=== PATIENT | female | born 1965 | race Caucasian/White ===

== ENCOUNTER 2021-03-29 16:40 | Emergency (ER) | payer OTHER, SELFPAY ==
[2021-03-29] VITALS (23 sets, daily range): BP systolic 107–114; BP diastolic 65–73; PULSE 61–81; RESP 12–24; TEMP 36.4; O2SAT 96–100
--- NOTE | 2021-03-29 16:30 | RT.EKG_ITS ---
APPROVED REPORT Exam: Resting ECG Reason for Exam: left arm pain and numbness Patient Location: E HR:68 bpm ECG Measurements Heart Rate 68 AXIS AZ 151 P 38 QRSd 83 QRS 36 QT 404 T 34 QTc 431 Conclusion Sinus rhythm...normal P axis, V-rate 60- 99 Low voltage, precordial leads...precordial leads <1.0mV
[2021-03-29] MEDS: Aspirin 81 MG CHEW 324 MG CH (16:57)
--- NOTE | 2021-03-29 17:15 | DI.RAD_ITS ---
Exam(s) XR CHEST 2V PA LATERAL EXAM: XR CHEST 2V PA LATERAL CLINICAL HISTORY: L shoulder pressure TECHNIQUE: 2D digital imaging was performed. COMPARISON: No exams were available for comparison FINDINGS: MEDIASTINUM: Normal. HEART: Normal. PULMONARY VASCULATURE: Normal. LUNGS: Clear. PLEURAL SPACE: No pleural effusion or pneumothorax. BONE:Within normal limits for the patient's age. OTHER FINDINGS:Normal. IMPRESSION: No acute pulmonary findings. DATA REPOSITORY: RADIATION DOSE DELIVERED:
[2021-03-29 17:16] LABS: Abs Immature Grans 0.01 10^3/uL (0.0-0.06); Absolute Basophil Count 0.03 10^3/uL (0.0-0.2); Absolute Eosinophil Count 0.27 10^3/uL (0.0-0.7); Absolute Lymphocyte Count 2.17 10^3/uL (1.2-3.4); Absolute Monocyte Count 0.55 10^3/uL (0.1-0.8); Absolute Neutrophil Count 2.85 10^3/uL (1.2-6.7); Basophils % 0.5; Eosinophils % 4.6; HCT 40.5 % (36.0-46.0); HGB 13.6 g/dL (11.2-15.7); Immature Grans % 0.2; Lymphocytes % 36.9; MCH 30.2 pg (27.0-33.0); MCHC 33.6 % (32.0-36.0); MPV 10.5 fL (8.0-11.0); Monocytes % 9.4; Neutrophils % 48.4; Nucleated RBC 0 %; Platelet Count 267 10^3/uL (130-400); RDW 12.9 % (11.7-14.6); RDW-SD 42.5 fL; WBC 5.88 10^3/uL (4.4-10.8)
[2021-03-29 17:27] LABS: Magnesium 2.1 mg/dL (1.8-2.4)
[2021-03-29 17:29] LABS: PTT Activated 24.6 sec (21.0-27.5)
[2021-03-29 17:33] LABS: ALT 42 U/L (14-59); AST 30 U/L (15-37); Albumin 3.8 g/dL (3.4-5.0); Alkaline Phosphatase 104 U/L (46-116); Anion Gap 8.2 mmol/L (3-11); BUN 21 mg/dL (7-18); Bilirubin, Total 0.4 mg/dL (0.2-1.0); CO2 25.8 mmol/L (21.0-32.0); CREATININE 0.8 mg/dL (0.55-1.02); Chloride 106 mmol/L (98-107); Glucose 98 mg/dL (74-106); Potassium 3.8 mmol/L (3.5-5.1); Sodium 140 mmol/L (136-145); Total Protein 7.5 g/dL (6.4-8.2); Troponin I < 0.05 ng/mL (<0.06)
[2021-03-29 17:48] LABS: D-Dimer 541 ng/mlFEU (<500)
--- NOTE | 2021-03-29 18:00 | DI.CT_ITS ---
Exam(s) CT CHEST PE CTA EXAM: CT CHEST PE CTA CLINICAL HISTORY: L sided chest pressure, elevated dimer. TECHNIQUE: Imaging Protocol: Axial CT angiography was performed with multi-slice acquisition and mu lti-planar and/or 3D reconstructions. CONTRAST MATERIAL: Intravenous: Omnipaque 350 Contrast volume:70 mL COMPARISON: CR,XR XR CHEST 2V PA LATERAL from 03/29/2021 CR,XR XR CHEST 2V PA LATERAL from 03/29/2021 FINDINGS: Tracheobronchial tree: Patent where visualized. Pulmonary parenchyma: No consolidation or dominant measurable mass. No architectural distortion. Depe ndent atelectasis. Pulmonary Arteries: No evidence of filling defect to suggest pulmonary emboli. Mediastinum and Laure: No dominant adenopathy or fluid collection. There is mild diffuse thickening of the wall of the esophagus. Visualized thyroid gland: Unremarkable. Pleura: No effusion or pneumothorax. Heart: The heart is not dilated. No coronary artery calcifications are seen. No pericardial effusion. Aorta: Thoracic aorta non-dilated. No evidence of dissection. Upper abdomen: There are multiple tiny hypodensities in the liver. They are too small for further c haracterization on this examination. A dedicated CT scan of the abdomen and pelvis is recommended fo r further evaluation. Soft tissues: Unremarkable. Bones: Within normal limits. IMPRESSION: 1. No evidence of pulmonary embolism, thoracic aortic dissection or aneurysm. 2. Diffuse thickening of the wall of the esophagus which may represent esophagitis. 3. Whipple tiny hypodensities within the liver. A dedicated CT scan of the abdomen and pelvis is rec ommended for further evaluation. RADIATION DOSE DELIVERED: 390.97mGy.cm Total DLP DATA REPOSITORY: All CT scans at this facility are submitted to the National Radiology Data Registry (NRDR) Dose Index Registry (DIR) with the [employer] ([employer]). RADIATION OPTIMIZATION: All CT scans at this facility use at least one of these dose optimization te chniques: automated exposure control; mA and/or kV adjustment per patient size (includes targeted exa ms where dose is matched to clinical indication); or iterative reconstruction.
--- NOTE | 2021-03-29 18:09 | DI.VRAD_ITS ---
PROCEDURE INFORMATION: Exam: XR Chest Exam date and time: 03/29/2021 5:26 PM Age: 55 years old Clinical indication: Other: Left shoulder pressure, left arm pain, PT not feeling well all of a sudden TECHNIQUE: Imaging protocol: XR of the chest. Views: 2 views. COMPARISON: No relevant prior studies available. FINDINGS: Lungs: Unremarkable. No consolidation. Pleural spaces: Unremarkable. No pleural effusion. No pneumothorax. Heart/Mediastinum: Unremarkable. No cardiomegaly. Bones/joints: Unremarkable. IMPRESSION: No acute findings. Dictated and Authenticated by: Ernie Longoria MD. Ordering:LONDON Hampton MD
--- NOTE | 2021-03-29 18:23 | ED.GENADUL_ITS ---
Discharge Plan Disposition Patient Disposition: HOME Condition: Stable Discharge Details Clinical Impression: Arm paresthesia, left, Esophagitis Primary Care Provider: Unknown,Unknown ED Provider: Memo Moyer Home Meds and New Rx's Prescriptions: Continued levothyroxine [Synthroid] 125 mcg Tablet 125 mcg PO DAILY RF: 0 Vyvanse 70 mg Capsule 70 mg PO DAILY RF: 0 Discharge Instructions Instructions: Paresthesia (ED), Esophagitis (ED) Additional Instructions: Rapid cardiac rule out is unremarkable here in the ER. Chest CTA reveals no evidence of PE. It does reveal mild esophagitis but it sounds like you just began taking [id number] PPI secondary to indigestion. Please watch for new or worsening symptoms and return to the ER for any concerns. Otherwise I strongly recommend following up with your primary care provider for further evaluation of your symptoms once you return home to [place] Discharge Data Discharge Date/Time-TO BE ENTERED AT DEPARTURE: 03/29/21 20:55 Medical Decision Making This is a 55-year-old female, past medical history of thyroid disease, flew from [place] yesterday, presenting for left arm paresthesias. Clinically she appears well, nontoxic, is neurologically intact, denies any chest pain or shortness of breath. Although this very well could be radiculopathy in nature given she has been helping move and lift her elderly father, concern for atypical ACS, PE given her recent flight, etc. Plan is to give the patient a full dose aspirin, initiate cardiac work-up including chest x-ray and a D-dimer. Patient is agreeable to this plan. Initial laboratory values are unremarkable for obvious emergent process. No e vidence of leukocytosis, electrolytes are unremarkable, normal renal function, troponin less than 0.05, age-adjusted D-dimer is negative at 541. Chest x-ray unremarkable Upon reevaluation patient states that her symptoms are improving but have not resolved completely. Given her recent flight, using shared decision-making, given her dimer is above 500 and so close to being positive when factoring in age adjustment, she would like to pursue CTA of the chest. CTA reveals mild esophagitis but no PE. Discussed findings with patient. 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 Heart score of 1. Discussed heart score and work-up thus far. Patient is agreeable to awaiting repeat troponin and EKG and if unremarkable she would like to be discharged. Patient states that she will follow up when she returns to [place] in the next 3-4 days otherwise will return to our ER or any ER longer travels for new or worsening symptoms. Given her benign work-up thus far will give 30 IV Toradol. Repeat EKG performed at 2012, please see official report by Dr. Friedman. Sinus rhythm, ventricular rate of 63. No STEMI. No dynamic changes when compared to initial EKG Repeat troponin remains less than 0.05. Patient reports some improvement with the IV Toradol. Symptoms are much improved when compared to her initial presentation but not resolved completely. Patient will watch her diet and take [id number] PPI. She will follow-up with her primary care provider when she returns home to [place], discuss outpatient stress test and/or echocardiogram as well as potential endoscopy if her indigestion continues. We once again discussed her work-up here in the ER and I answered all of her questions and concerns to the best my ability. Patient is still comfortable with discharge. Strict discharge and return precautions given. This documentation was generated using [employer] system, please disregard any oddities of phrase or misspellings. Imaging Data Radiologic Study: Attestation: I personally reviewed and interpreted this imaging study as follows: Imaging: X-Ray Radiologist's impression: PROCEDURE INFORMATION: Exam: XR Chest Exam date and time: 03/29/2021 5:26 PM Age: 55 years old Clinical indication: Other: Left shoulder pressure, left arm pain, PT not feeling well all of a sudden TECHNIQUE: Imaging protocol: XR of the chest. Views: 2 views. COMPARISON: No relevant prior studies available. FINDINGS: Lungs: Unremarkable. No consolidation. Pleural spaces: Unremarkable. No pleural effusion. No pneumothorax. Heart/Mediastinum: Unremarkable. No cardiomegaly. Bones/joints: Unremarkable. IMPRESSION: No acute findings. Thank you for allowing us to participate in the care of your patient. Radiologic Study #2: Attestation: I personally reviewed and interpreted this imaging study as follows: Imaging: CT Scan Radiologist's impression: PROCEDURE INFORMATION: Exam: CTA Chest With Contrast Exam date and time: 03/29/2021 6:05 PM Age: 55 years old Clinical indication: Pain; Chest pressure and left-sided; Patient HX: Left sided chest pressure TECHNIQUE: Imaging protocol: Computed tomographic angiography of the chest with contrast. 3D rendering (Not supervised by radiologist): MIP and/or 3D reconstructed images were created by the technologist. Radiation optimization: All CT scans at this facility use at least one of these dose optimization techniques: automated exposure control; mA and/or kV adjustment per patient size (includes targeted exams where dose is matched to clinical indication); or iterative reconstruction. Contrast material: OMNIPAQUE 350; COMPARISON: CR XR CHEST 2V PA LATERAL 03/29/2021 5:37 PM FINDINGS: Pulmonary arteries: Unremarkable. No pulmonary emboli. There is bibasilar subsegmental atelectasis. Aorta: Unremarkable. No aortic aneurysm. No aortic dissection. Lungs: Unremarkable. No consolidation. No masses. Pleural spaces: Unremarkable. No pneumothorax. No pleural effusion. Heart: Unremarkable. No cardiomegaly. No pericardial effusion. Mediastinal space: There is wall thickening of the esophagus. Lymph nodes: Unremarkable. No enlarged lymph nodes. Bones/joints: Unremarkable. No acute fracture. Soft tissues: Unremarkable. [facility] Preliminary Radiology Report DRUG ROOM CLERK (QA) DISCREPANCY? If there is a discrepancy between the preliminary and final interpretation, please notify [employer] via [email or web address]. If you do not have access to our QA portal, call our QA team at [phone] CONFIDENTIALITY STATEMENT This report is intended only for the use of the referring physician, and only in accordance with law, If you received this in error, call [phone] Page 2 of 2 IMPRESSION: 1. No evidence for pulmonary embolism. 2. Wall thickening of the esophagus suspicious for esophagitis. Thank you for allowing us to participate in the care of your patient. Lab Data Lab results reviewed: Yes I reviewed the patient's lab results. Labs: Laboratory Tests Range/Units 03/29/21 03/29/21 03/29/21 17:00 17:00 17:00 WBC (4.4-10.8) 10^3/uL 5.88 RBC (3.93-5.22) 10^6/uL 4.50 Hgb (11.2-15.7) g/dL 13.6 Hct (36.0-46.0) % 40.5 MCV (80-95) fL 90.0 MCH (27.0-33.0) pg 30.2 MCHC (32.0-36.0) % 33.6 RDW (11.7-14.6) % 12.9 Plt Count (130-400) 10^3/uL 267 MPV (8.0-11.0) fL 10.5 Immature Gran % 0.2 Neutrophils % 48.4 Lymphocytes % 36.9 Monocytes % 9.4 Eosinophils % 4.6 Basophils % 0.5 Nucleated RBC % % 0 Absolute Neutrophils (1.2-6.7) 10^3/uL 2.85 Absolute Lymphocytes (1.2-3.4) 10^3/uL 2.17 Absolute Monocytes (0.1-0.8) 10^3/uL 0.55 Absolute Eosinophils (0.0-0.7) 10^3/uL 0.27 Absolute Basophils (0.0-0.2) 10^3/uL 0.03 PT (9.3-11.0) sec INR (0.9-1.1) APTT (21.0-27.5) sec D-Dimer (<500) ng/mlFEU Sodium (136-145) mmol/L 140 Potassium (3.5-5.1) mmol/L 3.8 Chloride (98-107) mmol/L 106 Carbon Dioxide (21.0-32.0) mmol/L 25.8 Anion Gap (3-11) mmol/L 8.2 BUN (7-18) mg/dL 21 H Creatinine (0.55-1.02) mg/dL 0.8 Estimated GFR/1.73 m2 (mL/min/1.73m2) >= 60.00 Glucose (74-106) mg/dL 98 Calcium (8.5-10.1) mg/dL 9.0 Magnesium (1.8-2.4) mg/dL 2.1 Total Bilirubin (0.2-1.0) mg/dL 0.4 AST (15-37) U/L 30 ALT (14-59) U/L 42 Alkaline Phosphatase (46-116) U/L 104 Troponin I (<0.06) ng/mL < 0.05 Total Protein (6.4-8.2) g/dL 7.5 Albumin (3.4-5.0) g/dL 3.8 Range/Units 03/29/21 03/29/21 17:00 20:00 WBC (4.4-10.8) 10^3/uL RBC (3.93-5.22) 10^6/uL Hgb (11.2-15.7) g/dL Hct (36.0-46.0) % MCV (80-95) fL MCH (27.0-33.0) pg MCHC (32.0-36.0) % RDW (11.7-14.6) % Plt Count (130-400) 10^3/uL MPV (8.0-11.0) fL Immature Gran % Neutrophils % Lymphocytes % Monocytes % Eosinophils % Basophils % Nucleated RBC % % Absolute Neutrophils (1.2-6.7) 10^3/uL Absolute Lymphocytes (1.2-3.4) 10^3/uL Absolute Monocytes (0.1-0.8) 10^3/uL Absolute Eosinophils (0.0-0.7) 10^3/uL Absolute Basophils (0.0-0.2) 10^3/uL PT (9.3-11.0) sec 10.0 INR (0.9-1.1) 1.0 APTT (21.0-27.5) sec 24.6 D-Dimer (<500) ng/mlFEU 541 H Sodium (136-145) mmol/L Potassium (3.5-5.1) mmol/L Chloride (98-107) mmol/L Carbon Dioxide (21.0-32.0) mmol/L Anion Gap (3-11) mmol/L BUN (7-18) mg/dL Creatinine (0.55-1.02) mg/dL Estimated GFR/1.73 m2 (mL/min/1.73m2) Glucose (74-106) mg/dL Calcium (8.5-10.1) mg/dL Magnesium (1.8-2.4) mg/dL Total Bilirubin (0.2-1.0) mg/dL AST (15-37) U/L ALT (14-59) U/L Alkaline Phosphatase (46-116) U/L Troponin I (<0.06) ng/mL < 0.05 Total Protein (6.4-8.2) g/dL Albumin (3.4-5.0) g/dL ECG Data Attestation: I personally reviewed and interpreted this ECG (s) as follows: Interpretation: Please see official report by Dr. Cazares, sinus rhythm, ventricular rate of 68. No STEMI. HPI General Mode of arrival: ambulatory . Date/Time Provider Initiated Documentation: 03/29/21 16:52 . Limitations to Documentation: no limitations . Information obtained by: patient . HPI Narrative: This is a 55-year-old female, past medical history that includes thyroid disease, presenting to the ER reporting left arm and shoulder paresthesias and nausea that began about 30 minutes ago at rest. The paresthesias run from the anterior aspect of her left shoulder down her entire arm and into all 5 digits. Patient states that yesterday she flew here from [place] was asymptomatic. The purpose of her travel was to see her father who was initiated on hospice care today, she has been helping care for him, lifting, turning him, and wonders if she could have injured herself. She denies any true pain. She denies any pulmonary or cardiac history. Denies recent illness or trauma. Denies headache, neck pain, chest pain, shortness of breath, abdominal pain, vomiting, change in bowel or bladder function, pain or swelling in her legs, numbness, tingling, weakness. Denies history of DVT or PE. She has not taken any medication for her symptoms. Patient states that she is likely going to be in the area for the next 3-4 days and then will travel back home to [place]. Patient is not a smoker. 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 She is right-hand dominant Related Data Home Medications Medication Instructions Recorded Confirmed Vyvanse 70 mg PO DAILY 03/29/21 03/29/21 levothyroxine [Synthroid] 125 mcg PO DAILY 03/29/21 03/29/21 Allergies Allergy/AdvReac Type Severity Reaction Status Date / Time No Known Allergies Allergy Unverified 03/29/21 16:53 General Stated Complaint: Chest Pain BUD: 2 Review of Systems Constitutional Constitutional: Denies fatigue, Denies fever(s) and Denies headache(s) Eyes Eyes: Denies change in vision ENT Ears, Nose, Mouth, and Throat: Denies headache(s) and Denies neck pain Cardiovascular Cardiovascular: Denies chest pain and Denies dyspnea Respiratory Respiratory: Denies cough and Denies dyspnea Gastrointestinal Gastrointestinal: Denies abdominal pain, Reports nausea (Has resolved completely) and Denies vomiting Musculoskeletal Musculoskeletal: Denies back pain, Denies neck pain, Denies numbness, Denies stiffness and Reports tingling Integumentary/Breasts Skin/Breast: Denies rash Neurologic Neurologic: Denies headache(s), Denies numbness and Reports tingling Endocrine Endocrine: Denies fatigue [facility] Social History Smoking/Tobacco Use Status: Never Smoking risk assessment performed?: Yes Alcohol Intake: current Alcohol Intake frequency: holidays/special occasions only Drug use: Never Substance use type: does not use Do you feel safe at home: Yes Do you feel safe in your relationship?: Yes Exam Const General: cooperative, healthy appearing, comfortable and no acute distress Orientation: alert, awake and oriented x3 HENMT Head: normal to inspection, normocephalic and atraumatic Face and sinus: normal facial exam Mouth: moist mucous membranes Throat: posterior oropharynx normal Eyes General: appearance normal, both eyes and all related structures Alignment and Position: alignment normal Periorbital: periorbital findings normal Eyelids: eyelids normal Conjunctivae: conjunctivae normal Sclera: sclerae normal Cornea: corneas normal Pupils: PERRL EOM: EOM intact bilaterally Direct ophthalmoscopy: normal light reflex Neck Neck: normal visual inspection, full ROM, no meningeal signs, trachea midline, supple and nontender Chest Chest: normal inspection of the chest Resp Effort & Inspection: normal respiratory effort and able to speak in complete sentences Auscultation: clear to auscultation bilaterally Cardio Rate: regular rate Rhythm: regular rhythm GI Palpation: soft, not firm, no guarding, no pulsatile masses and nontender Back/Spine/Pelvis Back: no CVA tenderness and No back tenderness Skin General skin exam: no rashes or lesions noted Neuro General: patient alert, patient awake, patient oriented x3, moves all ext remities and no focal motor deficits Cranial Nerves: CN's II-XI intact bilaterally Cognition: normal cognition Speech: speech normal Gait: normal gait Motor: muscle tone normal throughout, strength 5/5 throughout, no movement abnormalities noted and no fasciculations Sensory Exam: no sensory deficits noted Coordination: Does not sway with eyes open Extrem General: normal to inspection, full ROM, capillary refill normal, no pedal edema and no calf tenderness Psych Appearance: grossly normal Mental Status: mental status grossly normal Course Vital Signs Vital signs: Vital Signs Temperature 36.4 C L 03/29/21 16:44 Pulse 78 03/29/21 16:44 Respiratory Rate 19 03/29/21 16:44 Pulse Oximetry 99 03/29/21 16:44 Temperature 36.4 C L 03/29/21 16:44 Temperature Source Temporal Artery Scan 03/29/21 16:44 Pulse 78 03/29/21 16:44 Respiratory Rate 19 03/29/21 16:44 Respiratory Effort Non-Labored 03/29/21 16:51 Blood Pressure Position Supine 03/29/21 16:44 Pulse Oximetry 99 03/29/21 16:44 Oxygen Delivery Method Room Air 03/29/21 16:44 Oxygen Flow Rate 0 03/29/21 16:44 Pain Level 4 03/29/21 16:44 Lab/Test Results Lab/Test Results: Laboratory Tests Range/Units 03/29/21 03/29/21 03/29/21 17:00 17:00 17:00 WBC (4.4-10.8) 10^3/uL 5.88 RBC (3.93-5.22) 10^6/uL 4.50 Hgb (11.2-15.7) g/dL 13.6 Hct (36.0-46.0) % 40.5 MCV (80-95) fL 90.0 MCH (27.0-33.0) pg 30.2 MCHC (32.0-36.0) % 33.6 RDW (11.7-14.6) % 12.9 Plt Count (130-400) 10^3/uL 267 MPV (8.0-11.0) fL 10.5 Immature Gran % 0.2 Neutrophils % 48.4 Lymphocytes % 36.9 Monocytes % 9.4 Eosinophils % 4.6 Basophils % 0.5 Nucleated RBC % % 0 Absolute Neutrophils (1.2-6.7) 10^3/uL 2.85 Absolute Lymphocytes (1.2-3.4) 10^3/uL 2.17 Absolute Monocytes (0.1-0.8) 10^3/uL 0.55 Absolute Eosinophils (0.0-0.7) 10^3/uL 0.27 Absolute Basophils (0.0-0.2) 10^3/uL 0.03 PT (9.3-11.0) sec INR (0.9-1.1) APTT (21.0-27.5) sec D-Dimer (<500) ng/mlFEU Sodium (136-145) mmol/L 140 Potassium (3.5-5.1) mmol/L 3.8 Chloride (98-107) mmol/L 106 Carbon Dioxide (21.0-32.0) mmol/L 25.8 Anion Gap (3-11) mmol/L 8.2 BUN (7-18) mg/dL 21 H Creatinine (0.55-1.02) mg/dL 0.8 Estimated GFR/1.73 m2 (mL/min/1.73m2) >= 60.00 Glucose (74-106) mg/dL 98 Calcium (8.5-10.1) mg/dL 9.0 Magnesium (1.8-2.4) mg/dL 2.1 Total Bilirubin (0.2-1.0) mg/dL 0.4 AST (15-37) U/L 30 ALT (14-59) U/L 42 Alkaline Phosphatase (46-116) U/L 104 Troponin I (<0.06) ng/mL < 0.05 Total Protein (6.4-8.2) g/dL 7.5 Albumin (3.4-5.0) g/dL 3.8 Range/Units 03/29/21 17:00 WBC (4.4-10.8) 10^3/uL RBC (3.93-5.22) 10^6/uL Hgb (11.2-15.7) g/dL Hct (36.0-46.0) % MCV (80-95) fL MCH (27.0-33.0) pg MCHC (32.0-36.0) % RDW (11.7-14.6) % Plt Count (130-400) 10^3/uL MPV (8.0-11.0) fL Immature Gran % Neutrophils % Lymphocytes % Monocytes % Eosinophils % Basophils % Nucleated RBC % % Absolute Neutrophils (1.2-6.7) 10^3/uL Absolute Lymphocytes (1.2-3.4) 10^3/uL Absolute Monocytes (0.1-0.8) 10^3/uL Absolute Eosinophils (0.0-0.7) 10^3/uL Absolute Basophils (0.0-0.2) 10^3/uL PT (9.3-11.0) sec 10.0 INR (0.9-1.1) 1.0 APTT (21.0-27.5) sec 24.6 D-Dimer (<500) ng/mlFEU 541 H Sodium (136-145) mmol/L Potassium (3.5-5.1) mmol/L Chloride (98-107) mmol/L Carbon Dioxide (21.0-32.0) mmol/L Anion Gap (3-11) mmol/L BUN (7-18) mg/dL Creatinine (0.55-1.02) mg/dL Estimated GFR/1.73 m2 (mL/min/1.73m2) Glucose (74-106) mg/dL Calcium (8.5-10.1) mg/dL Magnesium (1.8-2.4) mg/dL Total Bilirubin (0.2-1.0) mg/dL AST (15-37) U/L ALT (14-59) U/L Alkaline Phosphatase (46-116) U/L Troponin I (<0.06) ng/mL Total Protein (6.4-8.2) g/dL Albumin (3.4-5.0) g/dL
[2021-03-29] MEDS: Omnipaque 350 MG/ML 100 ML BTL IJ (18:54)
[2021-03-29] MEDS: Normal Saline Flush 10 ML SYR IVP (19:13)
--- NOTE | 2021-03-29 19:54 | DI.VRAD_ITS ---
PROCEDURE INFORMATION: Exam: CTA Chest With Contrast Exam date and time: 03/29/2021 6:05 PM Age: 55 years old Clinical indication: Pain; Chest pressure and left-sided; Patient HX: Left sided chest pressure TECHNIQUE: Imaging protocol: Computed tomographic angiography of the chest with contrast. 3D rendering (Not supervised by radiologist): MIP and/or 3D reconstructed images were created by the technologist. Radiation optimization: All CT scans at this facility use at least one of these dose optimization techniques: automated exposure control; mA and/or kV adjustment per patient size (includes targeted exams where dose is matched to clinical indication); or iterative reconstruction. Contrast material: OMNIPAQUE 350; COMPARISON: CR XR CHEST 2V PA LATERAL 03/29/2021 5:37 PM FINDINGS: Pulmonary arteries: Unremarkable. No pulmonary emboli. There is bibasilar subsegmental atelectasis. Aorta: Unremarkable. No aortic aneurysm. No aortic dissection. Lungs: Unremarkable. No consolidation. No masses. Pleural spaces: Unremarkable. No pneumothorax. No pleural effusion. Heart: Unremarkable. No cardiomegaly. No pericardial effusion. Mediastinal space: There is wall thickening of the esophagus. Lymph nodes: Unremarkable. No enlarged lymph nodes. Bones/joints: Unremarkable. No acute fracture. Soft tissues: Unremarkable. IMPRESSION: 1. No evidence for pulmonary embolism. 2. Wall thickening of the esophagus suspicious for esophagitis. Dictated and Authenticated by: Mik Cervantes MD. Ordering:LONDON Hampton MD
--- NOTE | 2021-03-29 20:00 | RT.EKG_ITS ---
APPROVED REPORT Exam: Resting ECG Reason for Exam: L shoulder pressure Patient Location: E HR:63 bpm ECG Measurements Heart Rate 63 AXIS DE 159 P 57 QRSd 77 QRS 46 QT 424 T 37 QTc 435 Conclusion Sinus rhythm...normal P axis, V-rate 60- 99 Low voltage, precordial leads...precordial leads <1.0mV Anteroseptal infarct, age indeterminate...Q >35mS, T neg, V1-V2
[2021-03-29] MEDS: Ketorolac 30 MG/ML VIAL IVP (20:08)
[2021-03-29 20:41] LABS: Troponin I < 0.05 ng/mL (<0.06)
== END 2021-03-29 20:55 | disposition home or self-care (01) ==
PROVIDERS: Emergency Provider Physician Assistant
DX: R20.2 Paresthesia of skin (principal); K20.90 Esophagitis, unspecified without bleeding; R07.89 Other chest pain
CPT/HCPCS: 36415; 71275; 80053; 93005; 96374; 99285; 71046; 83735; 84484; 85025; 85379; 85610; 85730; 93010; 99284; J1885; J3490